=== PATIENT | male | born 1970 | race African-American/Black ===

== ENCOUNTER 2021-08-04 12:05 | Emergency (ER) | payer OTHER ==
[~2021-08-04] VITALS: Ht 167.6 cm; Wt 104.3 kg
[2021-08-04 12:14] VITALS: BP 125/90
--- NOTE | 2021-08-04 12:16 | NUR ---
The patient bibs for sinus infection and headache x 13 days. In room air and denies SOB. respiration regular and unlabored. Denies pain. Will continue to monitor the patient.
[2021-08-04] MEDS ORDERED: LEVO750T46 PO (12:27)
--- NOTE | 2021-08-04 12:31 | NUR ---
Patient discharged to home in stable condition. Written and verbal after care instructions given. Patient verbalizes understanding of instruction.
== END 2021-08-04 12:31 | disposition home or self-care (01) ==
LOC: ER 12:14
DX: J32.0 Chronic maxillary sinusitis (principal); Z88.0 Allergy status to penicillin; Z79.899 Other long term (current) drug therapy